=== PATIENT | female | born 1945 | race Caucasian/White ===

== ENCOUNTER 2024-08-12 08:36 | Day surgery (SDC) | payer MEDICARE ==
[~2024-08-12] VITALS: Ht 157.5 cm; Wt 96.5 kg
[~2024-08-12 08:36] MED LIST: Balanced Salt Epinephrine Irrigation Solution 500 mL IR SCH; Lidocaine HCl/Pf 1% 5 ML VIAL XX SCH; Moxifloxacin HCL 0.5 MG/0.1 ML 0.4MLSYR LEFTEYE SCH; PHENYLEPHRINE\\TROPICAMIDE\\TETRACAINE OPHTHALMIC DILATING SOLN LEFTEYE PRN; Povidone-Iodine 450 DROP/30 ML Solution LEFTEYE SCH; Povidone-Iodine 450 DROP/30 ML Solution ONE; Tetracaine HCl/Pf 0.5% Opth Soln 4 ml ONE
[2024-08-12] MEDS ORDERED: Diazepam 2 MG Tab ONE (08:58)
[2024-08-12] MEDS ORDERED: Diazepam 5 MG Tab ONE (08:59)
[2024-08-12] MEDS ORDERED: Ondansetron HCl 2 MG / ML 2ML Vial ONE (08:59)
--- NOTE | 2024-08-12 09:27 | NUR ---
[facility] DISCUSSED ELEVATED BP WITH DR SHRESTHA OF ANESTHESIA AND DR HESS (SURGEON). BP 232/82, 222/88, AND 224/87 WITH HR RANGING IN THE 60'S. PER DR SHRESTHA AND DR HESS OK TO PROCEED WITH VALIUM PO ADMINISTRATION AND OK TO PROCEED WITH PROCEDURE TODAY GIVEN THESE BLOOD PRESSURES. DENTAL HYGIENE ADMINISTRATIVE ASSISTANT ALYSON NOTIFIED AND NURSE FIELD CANE SCALER HELPER RAMAN NOTIFIED.
[2024-08-12] MEDS ORDERED: Prinivil10 MG PO (09:28)
[2024-08-12 10:23] VITALS: BP 182/82
== END 2024-08-12 10:44 | disposition home or self-care (01) ==
LOC: ORSCSDS 08:36
PROVIDERS: Student in an Organized Health Care Education/Training Program
PROC: 08RK3JZ Replacement of Left Lens with Synthetic Substitute, Percutaneous Approach (ICD-10-PCS; principal; 2024-08-12 10:00)
DX: H25.813 Combined forms of age-related cataract, bilateral (principal); H40.003 Preglaucoma, unspecified, bilateral; I10 Essential (primary) hypertension; Z79.899 Other long term (current) drug therapy
CPT/HCPCS: A9270; J2405; V2632

== ENCOUNTER 2024-08-20 10:05 | Day surgery (SDC) | payer MEDICARE ==
[~2024-08-20] VITALS: Ht 157.5 cm; Wt 97.1 kg
[~2024-08-20 10:05] MED LIST changes: +Diazepam 2 MG Tab PO PRN; -Moxifloxacin HCL 0.5 MG/0.1 ML 0.4MLSYR LEFTEYE SCH; +Moxifloxacin HCL 0.5 MG/0.1 ML 0.4MLSYR RIGHTEYE SCH; +Ondansetron 4 MG SoluTab MM PRN; -PHENYLEPHRINE\\TROPICAMIDE\\TETRACAINE OPHTHALMIC DILATING SOLN LEFTEYE PRN; +PHENYLEPHRINE\\TROPICAMIDE\\TETRACAINE OPHTHALMIC DILATING SOLN RIGHTEYE PRN; -Povidone-Iodine 450 DROP/30 ML Solution LEFTEYE SCH; +Povidone-Iodine 450 DROP/30 ML Solution RIGHTEYE SCH; +Prinivil10 MG PO; +diazePAM 2 MG,diazePAM 5 MG PO SCH
[2024-08-20] MEDS ORDERED: Diazepam 5 MG Tab ONE ×2 (10:18→10:31)
[2024-08-20] MEDS ORDERED: Diazepam 2 MG Tab ONE (10:18)
[2024-08-20 11:35] VITALS: BP 180/77
--- NOTE | 2024-08-20 12:00 | NUR ---
08/20/24 Hanna Sullivan D/C INSTRUCTIONS GIVEN TO PT, UNDERSTANDING VERBALIZED. PT GIVEN SHEET W/ BPs WRITTEN OUT FROM VISIT TODAY TO SHOW PCP. PT STATES SHE WILL GO STRAIGHT TO PCPs OFFICE AFTER LEAVING [facility] TODAY TO DISCUSS BP MED REGIMEN. PTs BP ELEVATED, BUT AT PRE-OP BASELINE. PT C/O SOME DISCOMFORT TO R EYE, BUT TOLERABLE. PT HAS ALL BELONGINGS W/ HER. NO VISIBLE SIGNS OF DISTRESS NOTED.
== END 2024-08-20 11:52 | disposition home or self-care (01) ==
LOC: ORSCSDS 10:05
PROVIDERS: Student in an Organized Health Care Education/Training Program
PROC: 08RJ3JZ Replacement of Right Lens with Synthetic Substitute, Percutaneous Approach (ICD-10-PCS; principal; 2024-08-20 11:30)
DX: H25.811 Combined forms of age-related cataract, right eye (principal); Z96.1 Presence of intraocular lens; I10 Essential (primary) hypertension; H40.003 Preglaucoma, unspecified, bilateral; Z79.899 Other long term (current) drug therapy
CPT/HCPCS: A9270; V2632

== ENCOUNTER 2025-04-29 13:39 | Emergency (ER) | payer MEDICARE ==
[~2025-04-29] VITALS: Ht 157.5 cm; Wt 90.7 kg
[~2025-04-29 13:39] MED LIST changes: -Balanced Salt Epinephrine Irrigation Solution 500 mL IR SCH; -Diazepam 2 MG Tab PO PRN; -Lidocaine HCl/Pf 1% 5 ML VIAL XX SCH; -Moxifloxacin HCL 0.5 MG/0.1 ML 0.4MLSYR RIGHTEYE SCH; -Ondansetron 4 MG SoluTab MM PRN; -PHENYLEPHRINE\\TROPICAMIDE\\TETRACAINE OPHTHALMIC DILATING SOLN RIGHTEYE PRN; -Povidone-Iodine 450 DROP/30 ML Solution ONE; -Povidone-Iodine 450 DROP/30 ML Solution RIGHTEYE SCH; -Tetracaine HCl/Pf 0.5% Opth Soln 4 ml ONE; -diazePAM 2 MG,diazePAM 5 MG PO SCH
[2025-04-29 15:15] VITALS: BP 164/84
== END 2025-04-29 17:23 | disposition home or self-care (01) ==
LOC: ER 13:39
DX: R04.0 Epistaxis (principal); Z88.5 Allergy status to narcotic agent; Z79.899 Other long term (current) drug therapy
CPT/HCPCS: 99283; A9270